=== PATIENT | female | born 1990 | race Caucasian/White ===

== ENCOUNTER 2017-08-27 16:13 | Emergency (ER) | payer SELFPAY ==
[2017-08-27] MEDS: ONDANSETRON 4 MG INJ IV ×2 (17:44→21:26)
[2017-08-27] MEDS: SOD CHLORIDE 0.9% 1,000 ML IV ×4 (17:44→21:26)
[2017-08-27 18:10] LABS: ADD MAN DIFF? NO
[2017-08-27 18:15] LABS: ADD UMIC NO; UR ASCORBIC ACID NEGATIVE (NEGATIVE); UR BILIRUBIN (Dip) NEGATIVE (NEGATIVE); UR BLOOD (Dip) NEGATIVE (NEGATIVE); UR CLARITY CLEAR (CLEAR); UR COLOR YELLOW (YELLOW); UR GLUCOSE (Dip) 3+ mg/dL (NEGATIVE); UR KETONES (Dip) 2+ mg/dL (NEGATIVE); UR LEUKOCYTE ESTERASE (Dip) NEGATIVE Leu/ul (NEGATIVE); UR NITRITE (Dip) NEGATIVE (NEGATIVE); UR SPECIFIC GRAVITY (Dip) 1.031 (1.003-1.030); UR TOTAL PROTEIN (Dip) NEGATIVE (NEGATIVE); UR UROBILINOGEN (Dip) NEGATIVE (NEGATIVE)
[2017-08-27 18:18] LABS: ABNORMAL IP MESSAGE 1; BASOPHIL # 0.1 10^3/ul (0.0-0.1); BASOPHILS % 0.4 % (0.0-2.0); EOSINOPHILS # 0.1 10^3/ul (0.0-0.5); EOSINOPHILS % 0.3 % (0.0-7.0); HEMATOCRIT 46.2 % (37.0-47.0); HEMOGLOBIN 16.6 g/dl (12.0-16.0); LYMPHOCYTES # 3.9 10^3/ul (0.8-2.9); LYMPHOCYTES % 27.3 % (15.0-51.0); MEAN CORPUSCULAR HEMOGLOBIN 28.5 pg (29.0-33.0); MEAN CORPUSCULAR HGB CONC 35.9 g/dl (32.0-37.0); MEAN CORPUSCULAR VOLUME 79.4 fl (82.0-101.0); MEAN PLATELET VOLUME 13.6 fl (7.4-10.4); MONOCYTE # 0.8 10^3/ul (0.3-0.9); MONOCYTES % 5.6 % (0.0-11.0); NEUTROPHIL # 9.5 10^3/ul (1.6-7.5); NEUTROPHILS % 66.1 % (39.0-77.0); PLATELET COUNT 215 10^3/UL (140-415); RED BLOOD COUNT 5.82 10^6/ul (4.20-5.40); RED CELL DISTRIBUTION WIDTH 11.9 % (11.5-14.5)
[2017-08-27 18:18] LABS: WHITE BLOOD COUNT 14.4 10^3/ul (4.8-10.8)
[2017-08-27 18:19] LABS: POSITIVE DIFF @See below
[2017-08-27 18:32] LABS: ALANINE AMINOTRANSFERASE 52 IU/L (13-69); ALBUMIN 4.5 g/dl (3.3-4.9); ALBUMIN/GLOBULIN RATIO 1.32; ALKALINE PHOSPHATASE 84 IU/L (42-121); ANION GAP 21 (8-16); ASPARTATE AMINO TRANSFERASE 24 IU/L (15-46); BILIRUBIN,INDIRECT 0.6 mg/dl (0-1.1); BILIRUBIN,TOTAL 0.6 mg/dl (0.2-1.3); BLOOD UREA NITROGEN 14 mg/dl (7-20); CALCIUM 10.2 mg/dl (8.4-10.2); CARBON DIOXIDE 23 mmol/L (21-31); CHLORIDE 102 mmol/L (97-110); CREATININE 0.54 mg/dl (0.44-1.00); GLUCOSE 330 mg/dl (70-220); LIPASE 82 U/L (23-300); POTASSIUM 3.6 mmol/L (3.5-5.1); SODIUM 142 mmol/L (135-144); TOTAL PROTEIN 7.9 g/dl (6.1-8.1)
[2017-08-27 19:54] LABS: Allen Test ACCEPTAB; MODE ROOM AIR; MetHgb Venous 0.3 %; Sample Type Blood venous; Site VENOUS LINE; Venous COHb 0.5 %; Venous Fraction OxyHgb 85.2 %; Venous Oxygen Sat 85.9 mmHG (55.0-75.0); Venous Total Hemglobin 16.9 g/dl
[2017-08-27 20:07] LABS: LACTIC ACID 2.5 mmol/L (0.5-2.0)
[2017-08-27] MEDS: LIDOCAINE/MYLANTA 40 ML BTL PO (21:27)
== END 2017-08-27 21:30 | disposition home or self-care (01) ==
LOC: E/R 16:13
DX: R00.0 Tachycardia, unspecified (principal); E86.0 Dehydration; E11.10 Type 2 diabetes mellitus with ketoacidosis without coma; Z79.84 Long term (current) use of oral hypoglycemic drugs
CPT/HCPCS: 36415; 80053; 81003; 81025; 82803; 82962; 83605; 83690; 85025; 96374; 99291-25

== ENCOUNTER 2017-08-28 11:11 | Inpatient (IN) | payer SELFPAY ==
[2017-08-28 13:54] LABS: AADO2 Arterial 17.6 mmHg (7.0-24.0); Allen Test ACCEPTAB; Arterial Base Excess -1.3 mmol/L (-3.0-3); Arterial Blood Gas Oxygen Sat 98.4 mmHG (95.0-98.0); Arterial COHb 0.2 % (0.0-3.0); Arterial Fraction of Oxyhgb 97.9 % (93.0-99.0); Arterial HCO3 17.7 mmol/L (22.0-26.0); Arterial MetHb 0.3 % (0.0-1.5); Arterial Total Hemglobin 16.7 g/dl (12.0-18.0); Arterial pCO2 19.8 mmhg (35-45); MODE ROOM AIR; Site Right Radial
[2017-08-28] MEDS: ONDANSETRON 4 MG INJ IV ×4 (14:06→22:08)
[2017-08-28] MEDS: SODIUM CHLORIDE 0.9% 1L BAG IV* (14:06)
[2017-08-28 14:23] LABS: ADD MAN DIFF? NO
[2017-08-28 14:25] LABS: ABNORMAL IP MESSAGE 1; BASOPHIL # 0.1 10^3/ul (0.0-0.1); BASOPHILS % 0.4 % (0.0-2.0); HEMATOCRIT 45.3 % (37.0-47.0); HEMOGLOBIN 16.4 g/dl (12.0-16.0); LYMPHOCYTES # 2.2 10^3/ul (0.8-2.9); LYMPHOCYTES % 14.3 % (15.0-51.0); MEAN CORPUSCULAR HEMOGLOBIN 28.7 pg (29.0-33.0); MEAN CORPUSCULAR HGB CONC 36.2 g/dl (32.0-37.0); MEAN CORPUSCULAR VOLUME 79.3 fl (82.0-101.0); MEAN PLATELET VOLUME 13.7 fl (7.4-10.4); MONOCYTE # 0.5 10^3/ul (0.3-0.9); MONOCYTES % 3.3 % (0.0-11.0); NEUTROPHIL # 12.7 10^3/ul (1.6-7.5); NEUTROPHILS % 81.7 % (39.0-77.0); PLATELET COUNT 222 10^3/UL (140-415); RED BLOOD COUNT 5.71 10^6/ul (4.20-5.40)
[2017-08-28 14:25] LABS: WHITE BLOOD COUNT 15.6 10^3/ul (4.8-10.8)
[2017-08-28 14:43] LABS: POSITIVE DIFF @See below
[2017-08-28 14:45] LABS: INR 1.16; PT RATIO 1.2
[2017-08-28 14:46] LABS: PARTIAL THROMBOPLASTIN TIME 23.5 Sec (25.0-35.0)
[2017-08-28 15:00] LABS: ALANINE AMINOTRANSFERASE 51 IU/L (13-69); ALBUMIN 4.6 g/dl (3.3-4.9); ALBUMIN/GLOBULIN RATIO 1.39; ALKALINE PHOSPHATASE 80 IU/L (42-121); ANION GAP 27 (8-16); ASPARTATE AMINO TRANSFERASE 22 IU/L (15-46); BILIRUBIN,INDIRECT 0.7 mg/dl (0-1.1); BILIRUBIN,TOTAL 0.7 mg/dl (0.2-1.3); BLOOD UREA NITROGEN 11 mg/dl (7-20); CALCIUM 9.9 mg/dl (8.4-10.2); CARBON DIOXIDE 15 mmol/L (21-31); CHLORIDE 105 mmol/L (97-110); CREATININE 0.53 mg/dl (0.44-1.00); GLUCOSE 366 mg/dl (70-220); POTASSIUM 3.8 mmol/L (3.5-5.1); SODIUM 143 mmol/L (135-144); TOTAL PROTEIN 7.9 g/dl (6.1-8.1)
[2017-08-28 15:03] LABS: LACTIC ACID 2.6 mmol/L (0.5-2.0)
[2017-08-28] MEDS: METOCLOPRAMIDE 10 MG INJ IV (15:21)
[2017-08-28 15:35] LABS: TROPONIN-I < 0.012 ng/ml (0.00-0.12)
[2017-08-28 15:44] LABS: ADD UMIC YES; UR ASCORBIC ACID NEGATIVE (NEGATIVE); UR BACTERIA FEW /HPF (NONE SEEN); UR BILIRUBIN (Dip) NEGATIVE (NEGATIVE); UR BLOOD (Dip) NEGATIVE (NEGATIVE); UR CLARITY CLEAR (CLEAR); UR COLOR YELLOW (YELLOW); UR GLUCOSE (Dip) 3+ mg/dL (NEGATIVE); UR KETONES (Dip) 2+ mg/dL (NEGATIVE); UR LEUKOCYTE ESTERASE (Dip) NEGATIVE Leu/ul (NEGATIVE); UR NITRITE (Dip) NEGATIVE (NEGATIVE); UR RBC 1 /HPF (0-5); UR SPECIFIC GRAVITY (Dip) 1.036 (1.003-1.030); UR TOTAL PROTEIN (Dip) 1+ mg/dl (NEGATIVE); UR UROBILINOGEN (Dip) NEGATIVE (NEGATIVE); UR WBC 2 /HPF (0-5)
[2017-08-28 16:30] LABS: LACTIC ACID 1.8 mmol/L (0.5-2.0)
[2017-08-28] MEDS ORDERED: HYDROCODONE/APAP (5/325) TAB PO ×2 (16:30)
[2017-08-28] MEDS ORDERED: ACETAMINOPHEN 650 MG SUPP PR (16:30)
[2017-08-28] MEDS ORDERED: NACL 0.9% 3 ML SYG IV (16:30)
[2017-08-28] MEDS ORDERED: DOCUSATE SODIUM 100 MG CAP PO (16:30)
[2017-08-28] MEDS ORDERED: BISACODYL 10 MG SUPP PR (16:30)
[2017-08-28] MEDS ORDERED: DEXTROSE 50% 50 ML SYRINGE IV ×2 (16:30)
[2017-08-28] MEDS: INSULIN HUMAN REGULAR 100 UNIT in SOD CHLORIDE 0.9% 99 ML IV (16:45)
[2017-08-28 16:50] LABS: ANION GAP 25 (8-16); BLOOD UREA NITROGEN 12 mg/dl (7-20); CALCIUM 9.9 mg/dl (8.4-10.2); CARBON DIOXIDE 16 mmol/L (21-31); CHLORIDE 105 mmol/L (97-110); CREATININE 0.53 mg/dl (0.44-1.00); GLUCOSE 364 mg/dl (70-220); POTASSIUM 4.1 mmol/L (3.5-5.1); SODIUM 142 mmol/L (135-144)
[2017-08-28 16:51] LABS: PHOSPHORUS 2.5 mg/dl (2.5-4.9)
[2017-08-28] MEDS: morphine 2 MG INJ IV (17:12)
[2017-08-28] MEDS: ACCU-CHEK XX ×9 (18:00→23:30)
[2017-08-28] MEDS: SOD CHLORIDE 0.9% 1,000 ML IV ×2 (18:08→23:10)
[2017-08-28] MEDS: DEXTROSE 5%-0.45% NACL 1,000 ML IV (18:08)
[2017-08-28 18:57] LABS: ANION GAP 18 (8-16); BLOOD UREA NITROGEN 10 mg/dl (7-20); CALCIUM 8.5 mg/dl (8.4-10.2); CARBON DIOXIDE 21 mmol/L (21-31); CHLORIDE 108 mmol/L (97-110); GLUCOSE 188 mg/dl (70-220); MAGNESIUM 1.5 mg/dl (1.7-2.5); PHOSPHORUS 3.3 mg/dl (2.5-4.9); POTASSIUM 3.3 mmol/L (3.5-5.1); SODIUM 144 mmol/L (135-144)
[2017-08-28] MEDS: morphine 10 MG INJ IV (19:08)
[2017-08-28 20:18] LABS: LACTIC ACID 2.6 mmol/L (0.5-2.0)
[2017-08-28 20:31] LABS: HEMOGLOBIN A1C 11.4 % (0-5.9)
[2017-08-28 22:02] LABS: ANION GAP 16 (8-16); BLOOD UREA NITROGEN 9 mg/dl (7-20); CALCIUM 8.4 mg/dl (8.4-10.2); CARBON DIOXIDE 23 mmol/L (21-31); CHLORIDE 108 mmol/L (97-110); CREATININE 0.52 mg/dl (0.44-1.00); GLUCOSE 122 mg/dl (70-220); MAGNESIUM 1.5 mg/dl (1.7-2.5); PHOSPHORUS 3.1 mg/dl (2.5-4.9); POTASSIUM 3.1 mmol/L (3.5-5.1); SODIUM 144 mmol/L (135-144)
[2017-08-28] MEDS ORDERED: INSULIN GLARGINE [LANtus] 3 ML PEN SC (22:30)
[2017-08-28] MEDS: INSULIN GLARGINE [LANtus] 3 ML PEN SC (23:19)
[2017-08-29] MEDS: DEXTROSE 5%-0.45% NACL 1,000 ML IV ×4 (00:35→19:10)
[2017-08-29] MEDS: ACCU-CHEK XX ×7 (01:10→06:30)
[2017-08-29 01:13] LABS: ANION GAP 18 (8-16); BLOOD UREA NITROGEN 9 mg/dl (7-20); CALCIUM 8.5 mg/dl (8.4-10.2); CARBON DIOXIDE 21 mmol/L (21-31); CHLORIDE 107 mmol/L (97-110); CREATININE 0.54 mg/dl (0.44-1.00); GLUCOSE 121 mg/dl (70-220); POTASSIUM 3.1 mmol/L (3.5-5.1); SODIUM 143 mmol/L (135-144)
[2017-08-29] MEDS: morphine 2 MG INJ IV (01:19)
[2017-08-29] MEDS: ONDANSETRON 4 MG INJ IV ×3 (01:22→12:29)
[2017-08-29] MEDS: PANTOPRAZOLE 40 MG INJ IV (05:49)
[2017-08-29] MEDS: SOD CHLORIDE 0.9% 1,000 ML IV ×3 (05:50→19:10)
[2017-08-29 06:05] LABS: ADD MAN DIFF? NO
[2017-08-29 06:09] LABS: WHITE BLOOD COUNT 13.3 10^3/ul (4.8-10.8)
[2017-08-29 06:10] LABS: ABNORMAL IP MESSAGE 1; BASOPHILS % 0.3 % (0.0-2.0); EOSINOPHILS # 0.1 10^3/ul (0.0-0.5); EOSINOPHILS % 0.5 % (0.0-7.0); HEMATOCRIT 37.3 % (37.0-47.0); HEMOGLOBIN 13.1 g/dl (12.0-16.0); LYMPHOCYTES % 37.9 % (15.0-51.0); MEAN CORPUSCULAR HEMOGLOBIN 28.5 pg (29.0-33.0); MEAN CORPUSCULAR HGB CONC 35.1 g/dl (32.0-37.0); MEAN CORPUSCULAR VOLUME 81.3 fl (82.0-101.0); MEAN PLATELET VOLUME 13.1 fl (7.4-10.4); MONOCYTES % 7.8 % (0.0-11.0); NEUTROPHIL # 7.1 10^3/ul (1.6-7.5); NEUTROPHILS % 53.2 % (39.0-77.0); PLATELET COUNT 169 10^3/UL (140-415); RED BLOOD COUNT 4.59 10^6/ul (4.20-5.40); RED CELL DISTRIBUTION WIDTH 12.5 % (11.5-14.5)
[2017-08-29 06:30] LABS: ALANINE AMINOTRANSFERASE 43 IU/L (13-69); ALBUMIN 3.5 g/dl (3.3-4.9); ALBUMIN/GLOBULIN RATIO 1.25; ALKALINE PHOSPHATASE 47 IU/L (42-121); ANION GAP 17 (8-16); ASPARTATE AMINO TRANSFERASE 19 IU/L (15-46); BILIRUBIN,INDIRECT 0.2 mg/dl (0-1.1); BILIRUBIN,TOTAL 0.2 mg/dl (0.2-1.3); BLOOD UREA NITROGEN 7 mg/dl (7-20); CALCIUM 8.2 mg/dl (8.4-10.2); CARBON DIOXIDE 23 mmol/L (21-31); CHLORIDE 106 mmol/L (97-110); CHOL/HDL RATIO 4.5 RATIO; CHOLESTEROL 145 mg/dl (100-200); CREATININE 0.53 mg/dl (0.44-1.00); GLUCOSE 191 mg/dl (70-220); HDL CHOLESTEROL 32 mg/dl (33-83); LDL CHOLESTEROL,CALCULATED 67 mg/dl; MAGNESIUM 1.6 mg/dl (1.7-2.5); POTASSIUM 3.2 mmol/L (3.5-5.1); SODIUM 143 mmol/L (135-144); TOTAL PROTEIN 6.3 g/dl (6.1-8.1); TRIGLYCERIDES 232 mg/dl (0-149)
[2017-08-29 06:36] LABS: PHOSPHORUS 3.2 mg/dl (2.5-4.9)
[2017-08-29 06:44] LABS: HEMOGLOBIN A1C 10.3 % (0-5.9)
[2017-08-29 06:49] LABS: POSITIVE DIFF @See below
[2017-08-29] MEDS: INSULIN HUMAN REGULAR 100 UNIT in SOD CHLORIDE 0.9% 99 ML IV (06:49)
[2017-08-29 07:07] LABS: FREE THYROXINE INDEX (Calc) 2.62 ug/ml (0.65-3.89); T3 UPTAKE 36.9 % (23.5-40.5); T4 (THYROXINE) 7.1 ug/dl (5.5-11.0)
[2017-08-29 07:29] LABS: THYROID STIMULATING HORMONE 0.789 MIU/L (0.465-4.680)
[2017-08-29] MEDS ORDERED: METOCLOPRAMIDE 10 MG INJ IV (14:30)
[2017-08-29] MEDS: METOCLOPRAMIDE 10 MG INJ IV (15:11)
[2017-08-29 15:25] LABS: LACTIC ACID 1.8 mmol/L (0.5-2.0)
[2017-08-29] MEDS ORDERED: GLUCOSE GEL 15 GRAM TUBE PO ×2 (16:30)
[2017-08-29] MEDS ORDERED: GLUCOSE GEL 15 GRAM TUBE BUCCAL (16:30)
[2017-08-29] MEDS ORDERED: GLUCAGON 1 MG INJ IM (16:30)
[2017-08-29] MEDS ORDERED: DEXTROSE 50% 50 ML SYRINGE IV ×2 (16:30)
[2017-08-29] MEDS: INSULIN ASPART [NOVOLOG] 3 ML PEN SC ×3 (17:28→21:00)
[2017-08-29] MEDS ORDERED: INSULIN GLARGINE [LANtus] 3 ML PEN SC (21:00)
[2017-08-29] MEDS: INSULIN GLARGINE [LANtus] 3 ML PEN SC (21:34)
[2017-08-29] MEDS: MAGNESIUM HYDROXIDE 30ML CUP PO (21:38)
[2017-08-29] MEDS: ACETAMINOPHEN 325 MG TAB PO (21:40)
[2017-08-30] MEDS: DEXTROSE 5%-0.45% NACL 1,000 ML IV ×4 (01:50→21:50)
[2017-08-30] MEDS: ACCUCHECK AT 2AM (Patients on SS coverage) XX (02:00)
[2017-08-30] MEDS: SOD CHLORIDE 0.9% 1,000 ML IV ×4 (02:12→21:50)
[2017-08-30] MEDS: ONDANSETRON 4 MG INJ IV (03:46)
[2017-08-30 05:09] LABS: ADD MAN DIFF? NO
[2017-08-30 05:19] LABS: WHITE BLOOD COUNT 10.4 10^3/ul (4.8-10.8)
[2017-08-30 05:19] LABS: BASOPHILS % 0.2 % (0.0-2.0); EOSINOPHILS # 0.1 10^3/ul (0.0-0.5); HEMATOCRIT 36.5 % (37.0-47.0); HEMOGLOBIN 12.7 g/dl (12.0-16.0); LYMPHOCYTES # 4.8 10^3/ul (0.8-2.9); LYMPHOCYTES % 46.6 % (15.0-51.0); MEAN CORPUSCULAR HEMOGLOBIN 28.5 pg (29.0-33.0); MEAN CORPUSCULAR HGB CONC 34.8 g/dl (32.0-37.0); MEAN PLATELET VOLUME 12.9 fl (7.4-10.4); MONOCYTE # 0.8 10^3/ul (0.3-0.9); MONOCYTES % 7.8 % (0.0-11.0); NEUTROPHIL # 4.6 10^3/ul (1.6-7.5); NEUTROPHILS % 44.2 % (39.0-77.0); PLATELET COUNT 156 10^3/UL (140-415); RED BLOOD COUNT 4.45 10^6/ul (4.20-5.40); RED CELL DISTRIBUTION WIDTH 12.3 % (11.5-14.5)
[2017-08-30 05:40] LABS: ANION GAP 15 (8-16); BLOOD UREA NITROGEN 5 mg/dl (7-20); CALCIUM 8.1 mg/dl (8.4-10.2); CARBON DIOXIDE 25 mmol/L (21-31); CHLORIDE 109 mmol/L (97-110); CREATININE 0.48 mg/dl (0.44-1.00); GLUCOSE 151 mg/dl (70-220); POTASSIUM 3.6 mmol/L (3.5-5.1); SODIUM 145 mmol/L (135-144)
[2017-08-30] MEDS: PANTOPRAZOLE 40 MG INJ IV (07:47)
[2017-08-30] MEDS: INSULIN ASPART [NOVOLOG] 3 ML PEN SC ×7 (07:50→21:00)
[2017-08-30 14:46] LABS: CREATININE, RANDOM URINE 61 mg/dL (20-320); MICROALBUMIN 1.2 mg/dL; MICROALBUMIN/CREATININE RATIO 20 (<30)
[2017-08-30] MEDS: INFLUENZA VIRUS VACCINE 0.5 ML (DISPENSING) IM* (16:53)
[2017-08-30] MEDS ORDERED: metFORMIN (XR) 500 MG TAB PO (18:30)
[2017-08-30] MEDS: INSULIN GLARGINE [LANtus] 3 ML PEN SC (21:43)
[2017-08-31] MEDS: ACCUCHECK AT 2AM (Patients on SS coverage) XX (02:00)
[2017-08-31] MEDS: DEXTROSE 5%-0.45% NACL 1,000 ML IV ×2 (04:30→12:33)
[2017-08-31] MEDS: SOD CHLORIDE 0.9% 1,000 ML IV ×2 (04:53→06:34)
[2017-08-31 05:06] LABS: ADD MAN DIFF? NO
[2017-08-31 05:13] LABS: WHITE BLOOD COUNT 11.1 10^3/ul (4.8-10.8)
[2017-08-31 05:13] LABS: ABNORMAL IP MESSAGE 1; BASOPHILS % 0.4 % (0.0-2.0); EOSINOPHILS # 0.5 10^3/ul (0.0-0.5); EOSINOPHILS % 4.7 % (0.0-7.0); HEMATOCRIT 36.2 % (37.0-47.0); HEMOGLOBIN 12.7 g/dl (12.0-16.0); LYMPHOCYTES # 4.7 10^3/ul (0.8-2.9); LYMPHOCYTES % 42.5 % (15.0-51.0); MEAN CORPUSCULAR HEMOGLOBIN 28.9 pg (29.0-33.0); MEAN CORPUSCULAR HGB CONC 35.1 g/dl (32.0-37.0); MEAN CORPUSCULAR VOLUME 82.5 fl (82.0-101.0); MEAN PLATELET VOLUME 12.9 fl (7.4-10.4); MONOCYTE # 0.8 10^3/ul (0.3-0.9); NEUTROPHILS % 45.1 % (39.0-77.0); PLATELET COUNT 150 10^3/UL (140-415); POSITIVE DIFF @See below; RED BLOOD COUNT 4.39 10^6/ul (4.20-5.40); RED CELL DISTRIBUTION WIDTH 12.6 % (11.5-14.5)
[2017-08-31] MEDS: PANTOPRAZOLE 40 MG INJ IV (05:26)
[2017-08-31 05:34] LABS: ANION GAP 13 (8-16); BLOOD UREA NITROGEN 7 mg/dl (7-20); CALCIUM 8.7 mg/dl (8.4-10.2); CARBON DIOXIDE 27 mmol/L (21-31); CHLORIDE 110 mmol/L (97-110); CREATININE 0.54 mg/dl (0.44-1.00); GLUCOSE 132 mg/dl (70-220); POTASSIUM 3.6 mmol/L (3.5-5.1); SODIUM 146 mmol/L (135-144)
[2017-08-31] MEDS: INSULIN ASPART [NOVOLOG] 3 ML PEN SC ×5 (07:35→12:35)
[2017-08-31] MEDS: metFORMIN (XR) 500 MG TAB PO (09:03)
[2017-08-31] MEDS: LINAGLIPTIN 5 MG TABLET PO (09:03)
[2017-09-02 00:32] LABS: C-PEPTIDE 0.93 ng/mL (0.80-3.85)
== END 2017-08-31 13:38 | disposition left against medical advice (07) | DRG 639 ==
LOC: MS3 17:37 → FTE 11:11
DX: E11.10 Type 2 diabetes mellitus with ketoacidosis without coma (principal); E11.9 Type 2 diabetes mellitus without complications; E66.9 Obesity, unspecified; Z68.33 Body mass index [BMI] 33.0-33.9, adult
CPT/HCPCS: 36415; 36600; 71045; 80048; 80053; 80061; 81001; 82043; 82803; 82962; 83036; 83605; 83735; 84100; 84436; 84443; 84479; 84484; 84681; 84702; 85025; 85610; 85730; 87040; 87086; 90686; 93005; 96365; 96372; 96375; 96376; 99291-25

== ENCOUNTER 2018-10-10 07:22 | Emergency (ER) | payer OTHER ==
[2018-10-10 08:41] LABS: ADD MAN DIFF? NO
[2018-10-10] MEDS: SOD CHLORIDE 0.9% 1,000 ML IV (08:42)
[2018-10-10] MEDS: ONDANSETRON 4 MG INJ IV (08:42)
[2018-10-10 08:44] LABS: WHITE BLOOD COUNT 10.7 10^3/ul (4.8-10.8)
[2018-10-10 08:44] LABS: BASOPHILS % 0.3 % (0.0-2.0); EOSINOPHILS # 0.1 10^3/ul (0.0-0.5); EOSINOPHILS % 1.3 % (0.0-7.0); HEMOGLOBIN 14.8 g/dl (12.0-16.0); LYMPHOCYTES % 28.3 % (15.0-51.0); MEAN CORPUSCULAR HEMOGLOBIN 27.7 pg (29.0-33.0); MEAN CORPUSCULAR HGB CONC 33.6 g/dl (32.0-37.0); MEAN CORPUSCULAR VOLUME 82.4 fl (82.0-101.0); MEAN PLATELET VOLUME 12.6 fl (7.4-10.4); MONOCYTE # 0.6 10^3/ul (0.3-0.9); NEUTROPHIL # 6.8 10^3/ul (1.6-7.5); NEUTROPHILS % 63.8 % (39.0-77.0); PLATELET COUNT 193 10^3/UL (140-415); RED BLOOD COUNT 5.34 10^6/ul (4.20-5.40); RED CELL DISTRIBUTION WIDTH 12.7 % (11.5-14.5)
[2018-10-10 08:54] LABS: ADD UMIC NO; UR ASCORBIC ACID NEGATIVE (NEGATIVE); UR BILIRUBIN (Dip) NEGATIVE (NEGATIVE); UR BLOOD (Dip) NEGATIVE (NEGATIVE); UR CLARITY CLEAR (CLEAR); UR COLOR STRAW (YELLOW); UR GLUCOSE (Dip) NEGATIVE (NEGATIVE); UR KETONES (Dip) TRACE mg/dL (NEGATIVE); UR LEUKOCYTE ESTERASE (Dip) NEGATIVE Leu/ul (NEGATIVE); UR NITRITE (Dip) NEGATIVE (NEGATIVE); UR SPECIFIC GRAVITY (Dip) 1.012 (1.003-1.030); UR TOTAL PROTEIN (Dip) NEGATIVE (NEGATIVE); UR UROBILINOGEN (Dip) NEGATIVE (NEGATIVE)
[2018-10-10 09:03] LABS: ALANINE AMINOTRANSFERASE 34 IU/L (13-69); ALBUMIN 4.2 g/dl (3.3-4.9); ALKALINE PHOSPHATASE 81 IU/L (42-121); ANION GAP 11 (5-13); ASPARTATE AMINO TRANSFERASE 21 IU/L (15-46); BILIRUBIN,INDIRECT 0.1 mg/dl (0-1.1); BILIRUBIN,TOTAL 0.1 mg/dl (0.2-1.3); BLOOD UREA NITROGEN 11 mg/dl (7-20); CARBON DIOXIDE 23 mmol/L (21-31); CHLORIDE 109 mmol/L (97-110); CREATININE 0.57 mg/dl (0.44-1.00); Estimated GFR > 60 mL/min (>60); GLUCOSE 238 mg/dl (70-220); LIPASE 131 U/L (23-300); POTASSIUM 4.3 mmol/L (3.5-5.1); SODIUM 143 mmol/L (135-144); TOTAL PROTEIN 7.7 g/dl (6.1-8.1)
[2018-10-10] MEDS: LORAZEPAM 2 MG INJ IV (09:46)
== END 2018-10-10 11:44 | disposition home or self-care (01) ==
LOC: FTE 07:22
DX: R11.2 Nausea with vomiting, unspecified (principal); E11.9 Type 2 diabetes mellitus without complications; R19.7 Diarrhea, unspecified; F17.210 Nicotine dependence, cigarettes, uncomplicated; Z79.4 Long term (current) use of insulin
CPT/HCPCS: 36415; 80053; 81003; 82962; 83690; 84703; 85025; 96361; 96374; 96375; 99284-25

== ENCOUNTER 2018-11-12 13:21 | Inpatient (IN) | payer OTHER ==
[2018-11-12] MEDS: SOD CHLORIDE 0.9% 1,000 ML IV (13:51)
[2018-11-12] MEDS ORDERED: ONDANSETRON 4 MG INJ (13:56)
[2018-11-12 13:59] LABS: ADD MAN DIFF? NO
[2018-11-12 14:02] LABS: BASOPHIL # 0.1 10^3/ul (0.0-0.1); BASOPHILS % 0.4 % (0.0-2.0); EOSINOPHILS # 0.1 10^3/ul (0.0-0.5); EOSINOPHILS % 0.5 % (0.0-7.0); HEMATOCRIT 45.1 % (37.0-47.0); HEMOGLOBIN 15.5 g/dl (12.0-16.0); LYMPHOCYTES # 3.4 10^3/ul (0.8-2.9); MEAN CORPUSCULAR HEMOGLOBIN 27.7 pg (29.0-33.0); MEAN CORPUSCULAR HGB CONC 34.4 g/dl (32.0-37.0); MEAN CORPUSCULAR VOLUME 80.7 fl (82.0-101.0); MEAN PLATELET VOLUME 12.4 fl (7.4-10.4); MONOCYTE # 0.8 10^3/ul (0.3-0.9); MONOCYTES % 4.1 % (0.0-11.0); NEUTROPHIL # 14.4 10^3/ul (1.6-7.5); NEUTROPHILS % 76.5 % (39.0-77.0); PLATELET COUNT 254 10^3/UL (140-415); RED BLOOD COUNT 5.59 10^6/ul (4.20-5.40); RED CELL DISTRIBUTION WIDTH 12.4 % (11.5-14.5)
[2018-11-12 14:02] LABS: WHITE BLOOD COUNT 18.8 10^3/ul (4.8-10.8)
[2018-11-12] MEDS: ONDANSETRON 4 MG INJ IV (14:05)
[2018-11-12 14:21] LABS: ALANINE AMINOTRANSFERASE 21 IU/L (13-69); ALBUMIN 4.6 g/dl (3.3-4.9); ALBUMIN/GLOBULIN RATIO 1.17; ALKALINE PHOSPHATASE 119 IU/L (42-121); ANION GAP 14 (5-13); ASPARTATE AMINO TRANSFERASE 22 IU/L (15-46); BILIRUBIN,INDIRECT 0.5 mg/dl (0-1.1); BILIRUBIN,TOTAL 0.5 mg/dl (0.2-1.3); BLOOD UREA NITROGEN 14 mg/dl (7-20); CALCIUM 9.9 mg/dl (8.4-10.2); CARBON DIOXIDE 19 mmol/L (21-31); CHLORIDE 106 mmol/L (97-110); CREATININE 0.58 mg/dl (0.44-1.00); Estimated GFR > 60 mL/min (>60); GLUCOSE 243 mg/dl (70-220); MAGNESIUM 1.5 mg/dl (1.7-2.5); POTASSIUM 3.7 mmol/L (3.5-5.1); SODIUM 139 mmol/L (135-144); TOTAL PROTEIN 8.5 g/dl (6.1-8.1)
[2018-11-12] MEDS: LORAZEPAM 2 MG INJ IV ×2 (14:30→20:16)
[2018-11-12] MEDS: CEFTRIAXONE 1 GM/50 ML (PMX) 50 ML IVPB (14:38)
[2018-11-12 15:04] LABS: MODE ROOM AIR; MetHgb Venous 0.1 %; Sample Type Blood venous; Site VENOUS LINE; Venous COHb 0.4 %; Venous Fraction OxyHgb 93.8 %; Venous Oxygen Sat 94.3 mmHG (55.0-75.0); Venous Total Hemglobin 14.5 g/dl
[2018-11-12] MEDS ORDERED: SOD CHLORIDE 0.9% 1,000 ML IV (15:40)
[2018-11-12] MEDS ORDERED: DEXTROSE 10%/0.45% NACL 1,000 ML IV (15:40)
[2018-11-12] MEDS ORDERED: D10/0.45% NACL + KCL 40 MEQ 1,000 ML IV (15:40)
[2018-11-12] MEDS ORDERED: NS + KCL 40 MEQ 1,000 ML IV (15:40)
[2018-11-12] MEDS: LACTATED RINGER'S 1,000 ML IV ×2 (15:58→19:00)
[2018-11-12] MEDS ORDERED: DEXTROSE 50% 50 ML SYRINGE IV ×4 (16:00→19:00)
[2018-11-12] MEDS ORDERED: INSULIN REGULAR, HUMAN 100 UNIT in SOD CHLORIDE 0.9% 100 ML IV (16:00)
[2018-11-12 16:07] LABS: HEMOGLOBIN A1C 7.7 % (0-5.9)
[2018-11-12 16:08] LABS: ADD UMIC NO; UR ASCORBIC ACID NEGATIVE (NEGATIVE); UR BILIRUBIN (Dip) NEGATIVE (NEGATIVE); UR BLOOD (Dip) NEGATIVE (NEGATIVE); UR CLARITY SLIGHTLY CLOUDY (CLEAR); UR COLOR YELLOW (YELLOW); UR GLUCOSE (Dip) 3+ mg/dL (NEGATIVE); UR KETONES (Dip) 2+ mg/dL (NEGATIVE); UR LEUKOCYTE ESTERASE (Dip) NEGATIVE Leu/ul (NEGATIVE); UR MUCUS FEW /HPF (NONE SEEN); UR NITRITE (Dip) NEGATIVE (NEGATIVE); UR RBC 0 /HPF (0-5); UR SPECIFIC GRAVITY (Dip) 1.021 (1.003-1.030); UR SQUAMOUS EPITHELIAL CELL MODERATE /HPF (FEW); UR TOTAL PROTEIN (Dip) NEGATIVE (NEGATIVE); UR UROBILINOGEN (Dip) NEGATIVE (NEGATIVE); UR WBC 1 /HPF (0-5)
[2018-11-12 17:01] LABS: ANION GAP 13 (5-13); BLOOD UREA NITROGEN 12 mg/dl (7-20); CARBON DIOXIDE 19 mmol/L (21-31); CHLORIDE 107 mmol/L (97-110); CREATININE 0.52 mg/dl (0.44-1.00); Estimated GFR > 60 mL/min (>60); GLUCOSE 257 mg/dl (70-220); MAGNESIUM 1.4 mg/dl (1.7-2.5); PHOSPHORUS 1.5 mg/dl (2.5-4.9); SODIUM 139 mmol/L (135-144)
[2018-11-12 17:17] LABS: LACTIC ACID 3.2 mmol/L (0.5-2.0)
[2018-11-12] MEDS ORDERED: ACETAMINOPHEN 325 MG TAB PO (17:30)
[2018-11-12] MEDS ORDERED: MAGNESIUM HYDROXIDE 30ML CUP PO (17:30)
[2018-11-12] MEDS ORDERED: DOCUSATE SODIUM 100 MG CAP PO (17:30)
[2018-11-12] MEDS ORDERED: ONDANSETRON 4 MG INJ IV (17:30)
[2018-11-12] MEDS: D10/0.45% NACL + KCL 30 MEQ 1,000 ML IV (17:35)
[2018-11-12] MEDS: NS + KCL 30 MEQ 1,000 ML IV (17:35)
[2018-11-12 17:39] LABS: LIPASE 52 U/L (23-300)
[2018-11-12] MEDS: INSULIN ASPART [NOVOLOG] 3 ML PEN SC ×2 (18:00→20:58)
[2018-11-12] MEDS: MAGNESIUM SULFATE 2 GM/50 ML 50 ML IVPB (18:25)
[2018-11-12] MEDS ORDERED: GLUCAGON 1 MG INJ IM (19:00)
[2018-11-12] MEDS ORDERED: GLUCOSE GEL 15 GRAM TUBE BUCCAL (19:00)
[2018-11-12] MEDS ORDERED: GLUCOSE GEL 15 GRAM TUBE PO ×2 (19:00)
[2018-11-12] MEDS: METOCLOPRAMIDE 10 MG INJ IV (19:00)
[2018-11-12 19:04] LABS: LACTIC ACID 4.1 mmol/L (0.5-2.0)
[2018-11-12] MEDS: POTASSIUM PHOSPHATE 15 MM in SOD CHLORIDE 0.9% 250 ML IVPB (20:08)
[2018-11-12] MEDS ORDERED: INSULIN GLARGINE [LANtus] 3 ML PEN SC (21:00)
[2018-11-12] MEDS: FAMOTIDINE 20 MG INJ IV (22:09)
[2018-11-12] MEDS: INSULIN GLARGINE [LANTus] (100 UNITS/ML) SYG SC (22:18)
[2018-11-13] MEDS: LACTATED RINGER'S 1,000 ML IV ×2 (04:47→10:27)
[2018-11-13 05:54] LABS: ADD MAN DIFF? NO
[2018-11-13 06:01] LABS: BASOPHILS % 0.2 % (0.0-2.0); EOSINOPHILS % 0.2 % (0.0-7.0); HEMATOCRIT 39.3 % (37.0-47.0); HEMOGLOBIN 13.3 g/dl (12.0-16.0); LYMPHOCYTES # 3.4 10^3/ul (0.8-2.9); LYMPHOCYTES % 19.6 % (15.0-51.0); MEAN CORPUSCULAR HEMOGLOBIN 27.9 pg (29.0-33.0); MEAN CORPUSCULAR HGB CONC 33.8 g/dl (32.0-37.0); MEAN CORPUSCULAR VOLUME 82.4 fl (82.0-101.0); MEAN PLATELET VOLUME 12.2 fl (7.4-10.4); MONOCYTE # 1.4 10^3/ul (0.3-0.9); NEUTROPHIL # 12.4 10^3/ul (1.6-7.5); NEUTROPHILS % 71.7 % (39.0-77.0); PLATELET COUNT 208 10^3/UL (140-415); RED BLOOD COUNT 4.77 10^6/ul (4.20-5.40); RED CELL DISTRIBUTION WIDTH 12.9 % (11.5-14.5)
[2018-11-13 06:01] LABS: WHITE BLOOD COUNT 17.3 10^3/ul (4.8-10.8)
[2018-11-13 06:40] LABS: ALBUMIN 3.6 g/dl (3.3-4.9); ANION GAP 7 (5-13); BLOOD UREA NITROGEN 7 mg/dl (7-20); CALCIUM 8.5 mg/dl (8.4-10.2); CARBON DIOXIDE 25 mmol/L (21-31); CHLORIDE 109 mmol/L (97-110); CREATININE 0.53 mg/dl (0.44-1.00); GLUCOSE 140 mg/dl (70-220); PHOSPHORUS 3.3 mg/dl (2.5-4.9); POTASSIUM 3.7 mmol/L (3.5-5.1); SODIUM 141 mmol/L (135-144)
[2018-11-13] MEDS: INSULIN ASPART [NOVOLOG] 3 ML PEN SC ×4 (07:22→21:00)
[2018-11-13] MEDS: FAMOTIDINE 20 MG INJ IV ×2 (09:23→22:09)
[2018-11-13] MEDS: SERTRALINE 100 MG TAB PO (09:24)
[2018-11-13] MEDS: NAPHAZOLINE/PHENIRAMINE 15 ML OPH BOTH EYES ×4 (10:00→23:29)
[2018-11-13] MEDS: CHLORHEXIDINE GLUCONATE 15 ML UD CUP MT ×2 (10:30→22:09)
[2018-11-13] MEDS ORDERED: VANCOMYCIN IV PER PHARMACY XX (16:00)
[2018-11-13] MEDS: VANCOMYCIN HCL 1.75 GM in SOD CHLORIDE 0.9% 500 ML IVPB (17:47)
[2018-11-13] MEDS: INSULIN GLARGINE [LANTus] (100 UNITS/ML) SYG SC (22:11)
[2018-11-14] MEDS: VANCOMYCIN HCL 1.25 GM in SOD CHLORIDE 0.9% 250 ML IVPB ×2 (01:33→09:36)
[2018-11-14] MEDS: NAPHAZOLINE/PHENIRAMINE 15 ML OPH BOTH EYES ×2 (05:09→12:00)
[2018-11-14 05:25] LABS: ADD MAN DIFF? NO
[2018-11-14 05:31] LABS: ABNORMAL IP MESSAGE 1; BASOPHILS % 0.3 % (0.0-2.0); EOSINOPHILS # 0.1 10^3/ul (0.0-0.5); EOSINOPHILS % 0.9 % (0.0-7.0); HEMATOCRIT 37.5 % (37.0-47.0); HEMOGLOBIN 12.5 g/dl (12.0-16.0); LYMPHOCYTES # 5.1 10^3/ul (0.8-2.9); LYMPHOCYTES % 43.7 % (15.0-51.0); MEAN CORPUSCULAR HEMOGLOBIN 27.9 pg (29.0-33.0); MEAN CORPUSCULAR HGB CONC 33.3 g/dl (32.0-37.0); MEAN CORPUSCULAR VOLUME 83.7 fl (82.0-101.0); MEAN PLATELET VOLUME 12.5 fl (7.4-10.4); MONOCYTE # 0.9 10^3/ul (0.3-0.9); MONOCYTES % 7.7 % (0.0-11.0); NEUTROPHIL # 5.5 10^3/ul (1.6-7.5); NEUTROPHILS % 47.1 % (39.0-77.0); PLATELET COUNT 179 10^3/UL (140-415); RED BLOOD COUNT 4.48 10^6/ul (4.20-5.40); RED CELL DISTRIBUTION WIDTH 13.2 % (11.5-14.5)
[2018-11-14 05:31] LABS: WHITE BLOOD COUNT 11.6 10^3/ul (4.8-10.8)
[2018-11-14 05:45] LABS: POSITIVE DIFF @See below
[2018-11-14 05:58] LABS: ALBUMIN 3.6 g/dl (3.3-4.9); ANION GAP 7 (5-13); BLOOD UREA NITROGEN 8 mg/dl (7-20); CALCIUM 8.5 mg/dl (8.4-10.2); CARBON DIOXIDE 26 mmol/L (21-31); CHLORIDE 109 mmol/L (97-110); CREATININE 0.57 mg/dl (0.44-1.00); GLUCOSE 145 mg/dl (70-220); PHOSPHORUS 2.9 mg/dl (2.5-4.9); SODIUM 142 mmol/L (135-144)
[2018-11-14] MEDS: INSULIN ASPART [NOVOLOG] 3 ML PEN SC ×2 (09:35→13:31)
[2018-11-14] MEDS: CHLORHEXIDINE GLUCONATE 15 ML UD CUP MT (09:35)
[2018-11-14] MEDS: FAMOTIDINE 20 MG INJ IV (09:36)
[2018-11-14] MEDS: SERTRALINE 100 MG TAB PO (09:36)
== END 2018-11-14 15:25 | disposition home or self-care (01) | DRG 639 ==
LOC: E/R 13:21 → MS1 16:31
PROC: 4A033R1 Measurement of Arterial Saturation, Peripheral, Percutaneous Approach (ICD-10-PCS; principal; 2018-11-12)
DX: E11.10 Type 2 diabetes mellitus with ketoacidosis without coma (principal); E86.0 Dehydration; F17.200 Nicotine dependence, unspecified, uncomplicated; E66.9 Obesity, unspecified; E87.8 Other disorders of electrolyte and fluid balance, not elsewhere classified; Z79.4 Long term (current) use of insulin
CPT/HCPCS: 36415; 71045; 80048; 80053; 80069; 81001; 81003; 82803; 82962; 83036; 83605; 83690; 83735; 84100; 84703; 85025; 87040-91; 87086; 93306; 96361; 96374; 96375; 99285-25

== ENCOUNTER 2018-12-15 07:43 | Emergency (ER) | payer OTHER ==
[2018-12-15] MEDS: SOD CHLORIDE 0.9% IV (08:07)
[2018-12-15] MEDS: ONDANSETRON 4 MG INJ IV (08:08)
[2018-12-15] MEDS: LORAZEPAM 2 MG INJ IV (08:08)
[2018-12-15 08:13] LABS: MODE ROOM AIR; MetHgb Venous 0 %; Sample Type Blood venous; Site VENOUS LINE; Venous COHb 3.2 %; Venous Fraction OxyHgb 90.8 %; Venous Oxygen Sat 93.8 mmHG (55.0-75.0); Venous Total Hemglobin 15.9 g/dl
[2018-12-15 08:19] LABS: ADD MAN DIFF? NO
[2018-12-15 08:29] LABS: BASOPHIL # 0.1 10^3/ul (0.0-0.1); BASOPHILS % 0.4 % (0.0-2.0); EOSINOPHILS # 0.1 10^3/ul (0.0-0.5); EOSINOPHILS % 0.8 % (0.0-7.0); HEMATOCRIT 44.7 % (37.0-47.0); HEMOGLOBIN 15.2 g/dl (12.0-16.0); LYMPHOCYTES # 3.9 10^3/ul (0.8-2.9); LYMPHOCYTES % 27.7 % (15.0-51.0); MEAN CORPUSCULAR HEMOGLOBIN 27.6 pg (29.0-33.0); MEAN CORPUSCULAR VOLUME 81.1 fl (82.0-101.0); MEAN PLATELET VOLUME 12.8 fl (7.4-10.4); MONOCYTE # 0.8 10^3/ul (0.3-0.9); MONOCYTES % 5.9 % (0.0-11.0); NEUTROPHIL # 9.2 10^3/ul (1.6-7.5); NEUTROPHILS % 64.8 % (39.0-77.0); PLATELET COUNT 203 10^3/UL (140-415); RED BLOOD COUNT 5.51 10^6/ul (4.20-5.40); RED CELL DISTRIBUTION WIDTH 13.2 % (11.5-14.5)
[2018-12-15 08:29] LABS: WHITE BLOOD COUNT 14.2 10^3/ul (4.8-10.8)
[2018-12-15 08:51] LABS: ANION GAP 13 (5-13); BLOOD UREA NITROGEN 14 mg/dl (7-20); CALCIUM 9.4 mg/dl (8.4-10.2); CARBON DIOXIDE 22 mmol/L (21-31); CHLORIDE 103 mmol/L (97-110); CREATININE 0.78 mg/dl (0.44-1.00); Estimated GFR > 60 mL/min (>60); GLUCOSE 235 mg/dl (70-220); MAGNESIUM 1.6 mg/dl (1.7-2.5); PHOSPHORUS 3.3 mg/dl (2.5-4.9); POTASSIUM 3.5 mmol/L (3.5-5.1); SODIUM 138 mmol/L (135-144)
[2018-12-15] MEDS: LACTATED RINGER S IV (09:02)
[2018-12-15] MEDS: HALOPERIDOL 5 MG INJ IV (09:47)
[2018-12-15] MEDS: MAGNESIUM SULFATE 1 GM/D5W 100 ML IVPB (09:47)
[2018-12-15 09:58] LABS: ADD UMIC NO; UR ASCORBIC ACID NEGATIVE (NEGATIVE); UR BILIRUBIN (Dip) NEGATIVE (NEGATIVE); UR BLOOD (Dip) NEGATIVE (NEGATIVE); UR CLARITY CLEAR (CLEAR); UR COLOR YELLOW (YELLOW); UR GLUCOSE (Dip) 2+ mg/dL (NEGATIVE); UR KETONES (Dip) 1+ mg/dL (NEGATIVE); UR LEUKOCYTE ESTERASE (Dip) NEGATIVE Leu/ul (NEGATIVE); UR NITRITE (Dip) NEGATIVE (NEGATIVE); UR SPECIFIC GRAVITY (Dip) 1.014 (1.003-1.030); UR TOTAL PROTEIN (Dip) NEGATIVE (NEGATIVE); UR UROBILINOGEN (Dip) NEGATIVE (NEGATIVE)
== END 2018-12-15 13:09 | disposition home or self-care (01) ==
LOC: E/R 07:43
DX: G43.A0 Cyclical vomiting, in migraine, not intractable (principal); I10 Essential (primary) hypertension; F17.210 Nicotine dependence, cigarettes, uncomplicated; E86.0 Dehydration; E66.9 Obesity, unspecified; E11.9 Type 2 diabetes mellitus without complications; Z68.34 Body mass index [BMI] 34.0-34.9, adult; Z79.4 Long term (current) use of insulin
CPT/HCPCS: 36415; 80048; 81003; 81025; 82803; 82962; 83735; 84100; 85025; 96374; 96375; 99284-25